=== PATIENT | male | born 1990 | race Caucasian/White ===

== ENCOUNTER → 2021-04-14 | Day surgery (SDC) | payer OTHER ==
[~2021-04-14] VITALS: Ht 175.3 cm; Wt 95.7 kg
[~2021-04-14] MED LIST: HYDROCODON-ACE1 EAC7 PO
--- NOTE | ~2021-04-14 | O ---
[facility] [place] [address] OPERATIVE REPORT Name: JANA ALTMAN Room #: REG [facility]#: [id number] Admission: 04/14/21 Attend Phys: Juanjose Hanks MD Discharge: Date of : 86 Report #: [id number] THIS REPORT FOR: cc: Manuel James,Manuel Pugh,Juanjose Lyman MD ~ cc: Manuel James DO DATE OF SERVICE: 04/14/2021 PATIENT OF: Dr. Juanjose Hanks and Dr. Manuel James. PREOPERATIVE DIAGNOSIS: Chronically inflamed pilonidal cyst. POSTOPERATIVE DIAGNOSIS: Chronically inflamed pilonidal cyst. PROCEDURE: Marsupialization of a pilonidal cyst. SURGEON: Juanjose Hanks MD ANESTHESIA: General. DESCRIPTION OF PROCEDURE: The patient was brought to the operating room and underwent general endotracheal anesthesia, was then placed in the prone position. The area was then prepped and draped in a sterile fashion. Skin and subcutaneous tissue were then infiltrated with 0.5% Marcaine with epinephrine. Using a probe, the obvious pilonidal sinuses were probed down to the obvious external draining cyst in the left upper buttock. I then incised the pilonidal sinuses using a #15 scalpel blade. Dissection was carried down using the knife and a curette to identify the cyst cavity and wall. An ellipse of skin was excised around the sinuses as well as the chronic cyst. This was excised and sent to pathology. The area was carefully debrided down to the sacrum and the cyst wall. I then incised the subcutaneous fat back underneath the skin and then secured the skin down to the base of the cyst wall using a simple interrupted 2-0 chromic sutures. Hemostasis was obtained using electrocautery and found to be intact. The deeper layers were further infiltrated with the 0.5% Marcaine. The wound was then packed open with Telfa, 4 x 4 gauze, sponge, ABD pad and tape. The patient was then placed on a stretcher, intubated under general anesthesia and was then awakened from the general anesthesia, extubated and taken to recovery room in good condition. Estimated blood loss was approximately 10 mL and the patient tolerated the procedure well. All sponge, lap and instrument counts were correct x2. By: [id number] Juanjose Hanks MD /nt
[2021-04-14 07:36] VITALS: BP 123/68
[2021-04-14 09:26] VITALS: BP 123/68
--- NOTE | 2021-04-16 17:06 | PATH ---
[facility] [address] [place] [address] PATHOLOGY RPT PROCEDURE Name: SRIKANTH PECK Room #: REG [facility]#: [id number] Admission: 04/14/21 Date of : 86 Discharge: Report #: [id number] Path Case #: [id number] [facility] Accession Number: [id number] . 01 Material submitted: . gluteal cleft - PILONDIAL CYST . 01 Diagnosis: Skin with underlying soft tissue "pilonidal cyst": - Ruptured pilonidal cyst with acute and chronic inflammation with foreign body giant cell reaction and with sinus formation, appears excised in the section examined. (SHA:pit; 04/16/2021) QTP 04/16/2021 1226 Local . 01 Electronically signed: . Adalberto Fernandes MD, Pathologist NPI- [id number] . 01 Gross description: . Received in formalin labeled "Peck, Srikanth, pilonidal cyst" are multiple fragments of spence-yellow fibrotic soft tissue measuring in aggregate 7.5 x 5.0 x 1.8 cm. The largest portion displays an irregular fragment of spence-white skin measuring 5.9 x 3.5 x 0.3 cm. The skin surface displays a previously made incision displaying a spence-brown sinus tract measuring 2.0 cm in greatest dimension. [place] sections of the specimen are submitted in cassette A1. ([facility]; 04/15/2021) [facility] 04/15/2021 0858 Local . 01 Pathologist provided ICD-10: L72.0, L08.9 . 01 CPT . 235698 Specimen Comment: A courtesy copy of this report has been sent to [phone], [phone] Specimen Comment: [id number] Specimen Comment: Report sent to / DR CHAUHAN Performed at: [address], [place], [place] [id number] MD Adalberto Fernandes MD Phone: [phone]
== END | disposition home or self-care (01) ==
LOC: OR 06:04
PROVIDERS: ATTEND Surgery
DX: L05.91 Pilonidal cyst without abscess (principal); Z20.822 Contact with and (suspected) exposure to COVID-19; Z87.891 Personal history of nicotine dependence
CPT/HCPCS: 50010; 50101; 50386; 50403; 56524; 62110; 62900; 70005